=== PATIENT | female | born 1965 | race African-American/Black ===

== ENCOUNTER 2017-01-15 07:43 | Observation (INO) | payer OTHER ==
[~2017-01-15] VITALS: Ht 180.3 cm; Wt 77.5 kg
[2017-01-15] VITALS (9 sets, daily range): BP systolic 120–152; BP diastolic 74–92; PULSE 56–82; RESP 16–18; TEMP 96.2–98.2; O2SAT 97–99
[~2017-01-15 07:43] MED LIST: CYCL5TAB PO; MEDR4PAK3 PO; NAPR40TA PO
[2017-01-15] MEDS ORDERED: CYCL5TAB PO (08:06)
--- NOTE | 2017-01-15 08:11 | PD ---
HPI Chief Complaint: GI Complaint Time Seen by Provider: 08:08 Travel History International Travel<30 days: No Contact w/Intl Traveler<30days: No Traveled to known affect area: No History of Present Illness HPI 51-year-old female with history of borderline diabetes, presents to the ER today because she states that she is having 1 week history of substernal chest pains and epigastric sharp abdominal pains with intermittent twinges of pain, currently states that she has a 4 out 10 pain without known exacerbating or alleviating factors. She states she has mild shortness of breath but no coughing, fevers, vomiting, or any other symptoms. Modifying Factors: None Associated Signs & Symptoms: Epigastric abdominal pain and chest pain Risk Factors: None PFSH Past Medical History Arthritis: Yes Autoimmune Disease: No Anxiety: Yes Depression: No Heart Rhythm Problems: Yes (IRREGULAR HEART RATE) Cancer: Yes (ADRENAL TUMOR) Cardiovascular Problems: Yes High Cholesterol: No Chemotherapy: No Chest Pain: No Congestive Heart Failure: No Diabetes: No Diminished Hearing: No Endocrine: No Gastrointestinal Disorders: No Genitourinary: No Hypertension: No Immune Disorder: No Implanted Vascular Access Dvce: No Musculoskeletal: Yes Neurologic: No Psychiatric: No Reproductive: No Respiratory: No Radiation Therapy: No Thyroid Disease: No Ulcer: Yes Influenza Vaccination: Yes ?: Not Menopausal: Yes : 0 Past Surgical History Abdominal Surgery: No AICD: No Arteriovenous Shunt: No Cardiac Surgery: No Cholecystectomy: Yes Ear Surgery: No Endocrine Surgery: No Eye Surgery: No Genitourinary Surgery: No Gynecologic Surgery: Yes (HYSTERECTOMY) Hysterectomy: Yes Insulin Pump: No Joint Replacement: No Neurologic Surgery: No Oral Surgery: No Pacemaker: No Thoracic Surgery: No Other Surgery: Yes (ADRENAL GLAND REMOVED) Social History Alcohol Use: Yes (FEW BEERS PER WEEK) Tobacco Use: Yes (2-3 CIGS A DAY) Substance Use: No Allergies-Medications (Allergen,Severity, Reaction): Coded Allergies: Oxycodone (Verified Allergy, Unknown, "FLIPS OUT", 01/15/17) Penicillin (Verified Allergy, Unknown, CHILDHOOD PER PT, 01/15/17) Reported Meds & Prescriptions Reported Meds & Active Scripts Active Reported Flexeril (Cyclobenzaprine HCl) 5 Mg Tab Unknown Dose PO ONCE Review of Systems Except as stated in HPI: all other systems reviewed are Neg Physical Exam Narrative GENERAL: Well-developed -Greek female patient currently in mild distress. Awake and oriented 3. SKIN: Focused skin assessment warm/dry. HEAD: Atraumatic. Normocephalic. EYES: Pupils equal and round. No scleral icterus. No injection or drainage. ENT: No nasal bleeding or discharge. Mucous membranes pink and moist. NECK: Trachea midline. No JVD. CARDIOVASCULAR: Regular rate and rhythm. No murmur appreciated. RESPIRATORY: No accessory muscle use. Clear to auscultation. Breath sounds equal bilaterally. GASTROINTESTINAL: Abdomen soft, moderate epigastric tenderness without guarding or rebound, nondistended. Hepatic and splenic margins not palpable. MUSCULOSKELETAL: No obvious deformities. No clubbing. No cyanosis. No edema. NEUROLOGICAL: Awake and alert. No obvious cranial nerve deficits. Motor grossly within normal limits. Normal speech. PSYCHIATRIC: Appropriate mood and affect; insight and judgment normal. Data Data Last Documented VS Vital Signs Date Time Temp Pulse Resp B/P Pulse Ox O2 Delivery O2 Flow Rate FiO2 01/15/17 09:52 70 18 128/89 98 01/15/17 08:19 Room Air 01/15/17 07:49 98.2 Orders Electrocardiogram (01/15/17 08:08) Ckmb (Isoenzyme) Profile (01/15/17 08:08) Complete Blood Count With Diff (01/15/17 08:08) Comprehensive Metabolic Panel (01/15/17 08:08) Magnesium (Mg) (01/15/17 08:08) Prothrombin Time / Inr (Pt) (01/15/17 08:08) Act Partial Throm Time (Ptt) (01/15/17 08:08) Troponin I (01/15/17 08:08) Lipase (01/15/17 08:08) Chest, Single Ap (01/15/17 08:08) Ecg Monitoring (01/15/17 08:08) Bilateral Bp Monitoring (01/15/17 08:08) Iv Access Insert/Monitor (01/15/17 08:08) Oximetry (01/15/17 08:08) Oxygen Administration (01/15/17 08:08) Sodium Chloride 0.9% Flush (Ns Flush) (01/15/17 08:15) Aspirin (Aspirin) (01/15/17 09:45) Al-Mag Hy-Si 40-40-4 Mg/Ml Liq (Mag-Al P (01/15/17 09:45) Lidocaine 2% Viscous (Xylocaine 2% Visco (01/15/17 09:45) Ct Abd/Pel W Iv Contrast(Rout) (01/15/17 09:44) Iohexol 350 Inj (Omnipaque 350 Inj) (01/15/17 10:21) Labs Laboratory Tests Test 01/15/17 08:10 White Blood Count 9.7 TH/MM3 Red Blood Count 5.35 MIL/MM3 Hemoglobin 15.0 GM/DL Hematocrit 47.5 % Mean Corpuscular Volume 88.8 FL Mean Corpuscular Hemoglobin 28.0 PG Mean Corpuscular Hemoglobin 31.6 % Concent Red Cell Distribution Width 13.3 % Platelet Count 320 TH/MM3 Mean Platelet Volume 7.9 FL Neutrophils (%) (Auto) 60.4 % Lymphocytes (%) (Auto) 34.1 % Monocytes (%) (Auto) 4.3 % Eosinophils (%) (Auto) 0.8 % Basophils (%) (Auto) 0.4 % Neutrophils # (Auto) 5.9 TH/MM3 Lymphocytes # (Auto) 3.3 TH/MM3 Monocytes # (Auto) 0.4 TH/MM3 Eosinophils # (Auto) 0.1 TH/MM3 Basophils # (Auto) 0.0 TH/MM3 CBC Comment DIFF FINAL Differential Comment Prothrombin Time 10.5 SEC Prothromb Time International 1.0 RATIO Ratio Activated Partial 28.2 SEC Thromboplast Time Sodium Level 138 MEQ/L Potassium Level 3.8 MEQ/L Chloride Level 105 MEQ/L Carbon Dioxide Level 24.9 MEQ/L Anion Gap 8 MEQ/L Blood Urea Nitrogen 5 MG/DL Creatinine 0.71 MG/DL Estimat Glomerular Filtration 104 ML/MIN Rate Random Glucose 104 MG/DL Calcium Level 9.0 MG/DL Magnesium Level 2.3 MG/DL Total Bilirubin 0.5 MG/DL Aspartate Amino Transf 13 U/L (AST/SGOT) Alanine Aminotransferase 18 U/L (ALT/SGPT) Alkaline Phosphatase 118 U/L Total Creatine Kinase 72 U/L Troponin I LESS THAN 0.02 NG/ML Total Protein 7.8 GM/DL Albumin 3.5 GM/DL Lipase 132 U/L MDM Medical Decision Making Medical Screen Exam Complete: Yes Emergency Medical Condition: Yes Medical Record Reviewed: Yes Interpretation(s) EKG shows normal sinus rhythm at a rate of 70 bpm with no signs of acute ST-T changes. Laboratory Tests Test 01/15/17 08:10 Red Blood Count 5.35 MIL/MM3 (4.00-5.30) Hematocrit 47.5 % (35.0-46.0) Mean Corpuscular Hemoglobin 31.6 % Concent (32.0-36.0) Blood Urea Nitrogen 5 MG/DL (7-18) Aspartate Amino Transf 13 U/L (15-37) (AST/SGOT) Alkaline Phosphatase 118 U/L (45-117) Troponin I LESS THAN 0.02 NG/ML (0.02-0.05) Last 24 hours Impressions Chest X-Ray 01/15/17 0808 Signed Impressions: Service Date/Time: Sunday, January 15, 2017 08:47 - CONCLUSION: Normal examination. Jerry Kelly Jr., MD Differential Diagnosis Epigastric abdominal painsgastritis versus cholecystitis versus ACS versus dysrhythmias versus gastroenteritis Narrative Course Abdomen is fairly benign and I'm not suspecting an acute intra-abdominal problem. Lab work did not indicate any significant pancreatitis, dehydration, metabolic issues. EKG did not show dysrhythmias. She does not have acute ST-T changes. Patient does have some family history of early heart disease but otherwise has fevers factors herself. Considering her age and symptoms, my plan would be to admit her to chest pain center to rule out cardiac issues. CT of the abdomen and pelvis did not show any signs of acute processes. She is status post cholecystectomy and adrenalectomy. Diagnosis Primary Impression: Epigastric abdominal pain Additional Impression: Chest pain Admitting Information Admitting Physician Requests: Admit Amelia Haywood MD January 15, 2017 08:11
[2017-01-15] MEDS ORDERED: SODIUM CHLORIDE 0.9% FLUSH 10 ML FLUSH IVF PRN (08:15)
[2017-01-15 08:20] LABS: AUTOMATED NEUTROPHIL # 5.9 TH/MM3 (1.8-7.7); BASOPHIL % 0.4 % (0.0-2.0); EOSINOPHIL # 0.1 TH/MM3 (0-0.4); EOSINOPHIL % 0.8 % (0.0-4.0); HEMATOCRIT 47.5 % (35.0-46.0); LYMPH % 34.1 % (9.0-44.0); LYMPHOCYTE # 3.3 TH/MM3 (1.0-4.8); MEAN CELL VOLUME 88.8 FL (80.0-100.0); MEAN CORPUSCULAR HGB CONC 31.6 % (32.0-36.0); MONO % 4.3 % (0.0-8.0); NEUT % 60.4 % (16.0-70.0); PLATELET COUNT 320 TH/MM3 (150-450); RED BLOOD COUNT 5.35 MIL/MM3 (4.00-5.30); RED CELL DISTRIBUTION WIDTH 13.3 % (11.6-17.2); WHITE BLOOD COUNT 9.7 TH/MM3 (4.0-11.0)
[2017-01-15 08:21] LABS: HEMO FLAGS DIFF FINAL
[2017-01-15 08:30] LABS: CHLORIDE 105 MEQ/L (98-107); POTASSIUM 3.8 MEQ/L (3.5-5.1); SODIUM (NA) 138 MEQ/L (136-145)
[2017-01-15 08:33] LABS: APTT (PATIENT) 28.2 SEC (24.3-30.1); PROTHROMBIN TIME - PATIENT 10.5 SEC (9.8-11.6)
[2017-01-15 08:34] LABS: ANION GAP 8 MEQ/L (5-15); BICARBONATE 24.9 MEQ/L (21.0-32.0); BLOOD UREA NITROGEN 5 MG/DL (7-18); MAGNESIUM 2.3 MG/DL (1.5-2.5)
[2017-01-15 08:37] LABS: ALT (GPT) 18 U/L (10-53); AST (GOT) 13 U/L (15-37); GLOMERULAR FILTRATION RATE 104 ML/MIN (>89)
[2017-01-15 08:39] LABS: TOTAL BILIRUBIN ADULT 0.5 MG/DL (0.2-1.0)
[2017-01-15 08:40] LABS: ALKALINE PHOSPHATASE 118 U/L (45-117)
[2017-01-15 08:43] LABS: CREATINE KINASE 72 U/L (26-192)
--- NOTE | 2017-01-15 09:28 | RADHPO ---
EXAM DATE/TIME: 01/15/2017 08:47 [facility] COMPARISON: CHEST SINGLE AP, January 14, 2015, 21:47. INDICATIONS : Chest pain. MEDICAL HISTORY : None. SURGICAL HISTORY : None. ENCOUNTER: Initial ACUITY: 1 week PAIN SCORE: 3/10 LOCATION: Bilateral chest FINDINGS: A single view of the chest demonstrates the lungs to be symmetrically aerated without evidence of mas s, infiltrate or effusion. The cardiomediastinal contours are unremarkable. Osseous structures are intact. CONCLUSION: Normal examination. Jerry Kelly Jr., MD on January 15, 2017 at 9:26 Board Certified Radiologist. This report was verified electronically.
[2017-01-15] MEDS ORDERED: ALUMINUM/MAGNESIUM/SIMETH 30 ML CUP PO ONE (09:45)
[2017-01-15] MEDS ORDERED: LIDOCAINE VISCOUS 2% SOLN 15 ML UDC PO ONE (09:45)
[2017-01-15] MEDS ORDERED: ASPIRIN 325 MG TAB PO ONE (09:45)
[2017-01-15] MEDS ORDERED: IOHEXOL 350 MG/ML 10 ML VIAL (for RAD DIAG) IV ONE (10:21)
--- NOTE | 2017-01-15 10:43 | RADHPO ---
EXAM DATE/TIME: 01/15/2017 10:06 [facility] COMPARISON: CT ABDOMEN & PELVIS W CONTRAST, January 15, 2015, 0:05. INDICATIONS : Epigastric and substernal pain. IV CONTRAST: 95 cc Omnipaque 350 (iohexol) IV ORAL CONTRAST: No oral contrast ingested. RADIATION DOSE: 11.38 CTDIvol (mGy) MEDICAL HISTORY : Adrenal tumor. SURGICAL HISTORY : Cholecystectomy. Hysterectomy.Adrenal gland removed. ENCOUNTER: Initial ACUITY: 1 week PAIN SCALE: 4/10 LOCATION: upper quadrant TECHNIQUE: Volumetric scanning of the abdomen and pelvis was performed. Using automated exposure control and ad justment of the mA and/or kV according to patient size, radiation dose was kept as low as reasonably achievable to obtain optimal diagnostic quality images. FINDINGS: Examination of the lung bases demonstrates no abnormality. No pleural fluid is identified. No pulmona ry nodules are present. The liver and spleen are normal in size and no focal defects are identified. The gallbladder is surgically absent. The pancreas demonstrates a prominent pancreatic head with cont inued dilatation of the common bile duct to 10 mm unchanged from 2014. The right adrenal gland is unr emarkable. The left adrenal gland is surgically absent. The kidneys are normal bilaterally without ev idence of mass or hydronephrosis. Examination of the pelvis demonstrates no evidence of free fluid or pelvic mass. No abnormally enlarg ed inguinal or retroperitoneal lymph nodes are present. The bladder is unremarkable. CONCLUSION: 1. No evidence of acute abdominal or pelvic process. No masses are identified. 2. Cholecystectomy and left adrenalectomy 3. Prominent pancreatic head with continued dilatation the common duct. This may reflect reservoir af fect though MRCP is recommended for further evaluation if clinically indicated. Hugh Steven MD on January 15, 2017 at 10:35 Board Certified Radiologist. This report was verified electronically.
[2017-01-15] MEDS ORDERED: ASPIRIN 325 MG TAB PO SCH (11:30)
[2017-01-15] MEDS ORDERED: NITROGLYCERIN 0.4 MG SL 25 TABS/BTL SL PRN (11:30)
[2017-01-15] MEDS ORDERED: ENALAPRILAT 1.25 MG/ML VIAL IV PUSH PRN (11:45)
[2017-01-15] MEDS ORDERED: METOPROLOL TARTRATE 25 MG TAB PO SCH (12:00)
[2017-01-15] MEDS: MORPHINE SULFATE 4 MG/ML INJ IV PRN ×3 (13:04→21:39)
[2017-01-15 13:30] LABS: CREATINE KINASE 71 U/L (26-192)
--- NOTE | 2017-01-15 14:01 | HHI.HP ---
cc: ID Out Patient Clinic [facility] Admission Diagnosis chest pain Diagnoses: (1) Epigastric abdominal pain Diagnosis: Principal Chief Complaint: "chest pain" Travel History International Travel<30 Days: No Contact w/Intl Traveler <30 Da: No Traveled to Known Affected Are: No History of Present Illness 51-year-old -[place] female with history of hypertension due to an adrenal tumor which has since been removed, tobacco use, and GERD presents with complaint of chest pain pointing to the area over her lower sternum. She states the pain started 1.5 weeks ago and has been coming and going. She states the pain at most will be a 12/10 and feel like a knife stabbing her. She states it has eased up but is not gone. She denies any alleviating factors. She initially denies symptoms being related to food but then states every time she eats she gets a sensation of food getting stuck in her esophagus. She also states she likes spicy food. She denies any radiation of pain elsewhere. States she's had some sweating but is unsure if it is hot flashes versus true diaphoresis. Admits to decreased energy. Admits to shortness of breath only if the pain is bad because then she holds her breath. She denies any fevers or chills, abdominal pain, nausea or vomiting, or dysuria. Denies blood in the stool. Patient states she had an endoscopy and colonoscopy about 3 years ago. She does not take an medication for her stomach. Had a nuclear stress test 3-4 years ago which was normal and a treadmill stress test approximately 5 years ago. Review of Systems Except as stated in HPI: all other systems reviewed are Neg Past Family Social History Past Medical History Left adrenal tumor, benign. Hypertension related to adrenal tumor Past Surgical History Cholecystectomy Hysterectomy Left adrenal gland removal Reported Medications Flexeril (Cyclobenzaprine HCl) 5 Mg Tab Unknown Dose PO ONCE Allergies: Coded Allergies: Oxycodone (Verified Allergy, Unknown, "FLIPS OUT", 01/16/17) Penicillin (Verified Allergy, Unknown, CHILDHOOD PER PT, 01/16/17) Family History Mother: Diabetes, pacemaker. Father: CVA in his 60s. Maternal grandmother: [place] in her late 50s to early 60s, CABG 4. Maternal grandfather: CVA at age 65. Social History Kathryn. Patient drinks alcohol once monthly. Smokes approximately 2-3 cigarettes per week. She has been smoking for the past 20 years. Admits to marijuana use. Physical Exam Vital Signs Vital Signs Date Time Temp Pulse Resp B/P Pulse Ox O2 Delivery O2 Flow Rate FiO2 01/15/17 13:14 18 01/15/17 11:30 96.5 68 16 130/91 97 01/15/17 11:21 70 18 152/88 99 01/15/17 09:52 70 18 128/89 98 01/15/17 08:19 82 18 133/91 98 Room Air 01/15/17 08:16 82 18 133/91 98 Room Air 01/15/17 08:16 98 Room Air 01/15/17 07:49 98.2 82 135/92 97 Physical Exam GENERAL: This is a well-nourished, well-developed patient, in no apparent distress. SKIN: No rashes, ecchymoses or lesions. Warm and dry. HEAD: Atraumatic. Normocephalic. EYES: No injection or drainage. NECK: Trachea midline. CHEST: No reproducible tenderness over the sternum. CARDIOVASCULAR: Regular rate and rhythm without murmurs, gallops, or rubs. RESPIRATORY: Clear to auscultation. Breath sounds equal bilaterally. No wheezes , rales, or rhonchi. GASTROINTESTINAL: Normoactive bowel sounds. Abdomen soft, nondistended. Tender over epigastric region. No guarding. NEUROLOGICAL: Awake and alert. Motor grossly within normal limits. Normal speech. PSYCHIATRIC: Normal mood and affect. Laboratory Laboratory Tests Test 01/15/17 01/15/17 01/15/17 08:10 11:05 12:15 White Blood Count 9.7 Red Blood Count 5.35 Hemoglobin 15.0 Hematocrit 47.5 Mean Corpuscular Volume 88.8 Mean Corpuscular Hemoglobin 28.0 Mean Corpuscular Hemoglobin 31.6 Concent Red Cell Distribution Width 13.3 Platelet Count 320 Mean Platelet Volume 7.9 Neutrophils (%) (Auto) 60.4 Lymphocytes (%) (Auto) 34.1 Monocytes (%) (Auto) 4.3 Eosinophils (%) (Auto) 0.8 Basophils (%) (Auto) 0.4 Neutrophils # (Auto) 5.9 Lymphocytes # (Auto) 3.3 Monocytes # (Auto) 0.4 Eosinophils # (Auto) 0.1 Basophils # (Auto) 0.0 CBC Comment DIFF FINAL Differential Comment Prothrombin Time 10.5 Prothromb Time International 1.0 Ratio Activated Partial 28.2 Thromboplast Time Sodium Level 138 Potassium Level 3.8 Chloride Level 105 Carbon Dioxide Level 24.9 Anion Gap 8 Blood Urea Nitrogen 5 Creatinine 0.71 Estimat Glomerular Filtration 104 Rate Random Glucose 104 Calcium Level 9.0 Magnesium Level 2.3 Total Bilirubin 0.5 Aspartate Amino Transf 13 (AST/SGOT) Alanine Aminotransferase 18 (ALT/SGPT) Alkaline Phosphatase 118 Total Creatine Kinase 72 71 Troponin I LESS THAN 0.02 LESS THAN 0.02 LESS THAN 0.02 Total Protein 7.8 Albumin 3.5 Lipase 132 Beta HCG, Qualitative LESS THAN 1 Result Diagram: 01/15/17 0810 01/15/17 0810 Imaging Last Impressions Abdomen/Pelvis CT 01/15/17 0944 Signed Impressions: Service Date/Time: Sunday, January 15, 2017 10:06 - CONCLUSION: 1. No evidence of acute abdominal or pelvic process. No masses are identified. 2. Cholecystectomy and left adrenalectomy 3. Prominent pancreatic head with continued dilatation the common duct. This may reflect reservoir affect though MRCP is recommended for further evaluation if clinically indicated. Hugh Steven MD Chest X-Ray 01/15/17 0808 Signed Impressions: Service Date/Time: Sunday, January 15, 2017 08:47 - CONCLUSION: Normal examination. Jerry Kelly Jr., MD Assessment and Plan Assessment and Plan 51-year-old female with: moderatly severe Epigastric pain: pt was given morphine iv to alleviate the pain.Patient describes chest pain over the sternum but is clearly tender over the epigastric region and has food related symptom with risk factors for GERD. Lipase is normal. LFTs are normal. CT of the abdomen and pelvis shows no acute abdominal or pelvic process. It does show prominent pancreatic head with continued dilatation of the common duct. Radiologist indicates it may reflect reservoir affect though MRCP is recommended. May be chronic as dilation of the common bile duct was seen on gallbladder ultrasound in December 2014. Was given Maalox and viscous Lidocaine in the ED. -EKGs and cardiac enzymes ordered to rule out ACS. EKGs reviewed with left axis deviation but no acute ischemic changes. Troponin 4 less than 0.02. SUZY score zero. Patient does not need a stress test as her symptoms are believed to be GI related. -Start Protonix 40 mg by mouth daily -TUMS and Maalox as needed for dyspepsia. -GI consultation regarding CT findings above. HTN: Patient states she used to have high blood pressure due to her adrenal gland tumor which has since been removed, but her BP was elevated today, highest 152/88, could be attributed to pain. -Patient was given one dose of metoprolol this afternoon but will discontinue as symptoms are not felt to be cardiac related. -Vasotec as needed DVT prevention: SCDs. Written by Nikki Rhoades PA-C acting as scribe for Dr. Pang on 01/15/17 at ~ 1400. Nikki Rhoades January 15, 2017 14:01 Og Pang MD January 16, 2017 11:13
[2017-01-15] MEDS ORDERED: CALCIUM CARBONATE 500 MG CHEWABLE TAB CHEW PRN (14:30)
[2017-01-15] MEDS ORDERED: ALUMINUM/MAGNESIUM/SIMETH 30 ML CUP PO PRN (14:30)
[2017-01-15 15:03] LABS: CREATINE KINASE 66 U/L (26-192)
[2017-01-15] MEDS ORDERED: PANTOPRAZOLE SOD 40 MG DELAYED RELEASE TAB PO SCH (21:00)
--- NOTE | 2017-01-15 21:03 | PD.CONS ---
HPI History of Present Illness This is a 51 year old female who presents with complaints of epigastric pain for the past week and a half gradually worsening over time waxing and waning but continuous overall dull aching sensation with sharp stabbing episodes no radiation no nausea or vomiting no diarrhea or constipation no fever or chills no hematemesis coffee-ground emesis no melena or hematochezia she has tried over -the-counter antacids of different sorts and none have been helpful she has had an upper endoscopy and a colonoscopy a few years ago and for the most part it was unremarkable she is currently comfortable in bed still with continued upper abdominal tenderness but otherwise doing well [facility] Past Medical History Left adrenal tumor, benign. Hypertension related to adrenal tumor Past Surgical History Cholecystectomy Hysterectomy Left adrenal gland removal Coded Allergies: Oxycodone (Verified Allergy, Unknown, "FLIPS OUT", 01/15/17) Penicillin (Verified Allergy, Unknown, CHILDHOOD PER PT, 01/15/17) Medications Flexeril (Cyclobenzaprine HCl) 5 Mg Tab Unknown Dose PO ONCE Family History Mother: Diabetes, pacemaker. Father: CVA in his 60s. Maternal grandmother: [place] in her late 50s to early 60s, CABG 4. Maternal grandfather: CVA at age 65. Social History . Patient drinks alcohol once monthly. Smokes approximately 2-3 cigarettes per week. She has been smoking for the past 20 years. Admits to marijuana use. Review of Systems ROS Review of systems Patient denies any headache dizziness blurry vision, denies any chest pain shortness of breath cough fever chills, Denies any palpitations or fatigue denies any polyuria dysuria hematuria, denies any numbness tingling or weakness, denies any skin rash pruritus or jaundice, denies any easy bruising or bleeding tendency, denies any recent change in mood GI Exam Vitals I&O Vital Signs Date Time Temp Pulse Resp B/P Pulse Ox O2 Delivery O2 Flow Rate FiO2 01/15/17 20:00 97.6 63 18 121/74 99 01/15/17 17:46 15 01/15/17 16:00 96.2 56 16 120/85 97 01/15/17 11:30 96.5 68 16 130/91 97 01/15/17 11:21 70 18 152/88 99 01/15/17 09:52 70 18 128/89 98 01/15/17 08:19 82 18 133/91 98 Room Air 01/15/17 08:16 82 18 133/91 98 Room Air 01/15/17 08:16 98 Room Air 01/15/17 07:49 98.2 82 135/92 97 Imaging Last Impressions Abdomen/Pelvis CT 01/15/17 0944 Signed Impressions: Service Date/Time: Sunday, January 15, 2017 10:06 - CONCLUSION: 1. No evidence of acute abdominal or pelvic process. No masses are identified. 2. Cholecystectomy and left adrenalectomy 3. Prominent pancreatic head with continued dilatation the common duct. This may reflect reservoir affect though MRCP is recommended for further evaluation if clinically indicated. Hugh Steven MD Chest X-Ray 01/15/17 0808 Signed Impressions: Service Date/Time: Sunday, January 15, 2017 08:47 - CONCLUSION: Normal examination. Jerry Kelly Jr., MD Laboratory Test 01/15/17 01/15/17 01/15/17 01/15/17 08:10 11:05 12:15 14:21 White Blood Count 9.7 TH/MM3 Red Blood Count 5.35 MIL/MM3 Hemoglobin 15.0 GM/DL Hematocrit 47.5 % Mean Corpuscular Volume 88.8 FL Mean Corpuscular Hemoglobin 28.0 PG Mean Corpuscular Hemoglobin 31.6 % Concent Red Cell Distribution Width 13.3 % Platelet Count 320 TH/MM3 Mean Platelet Volume 7.9 FL Neutrophils (%) (Auto) 60.4 % Lymphocytes (%) (Auto) 34.1 % Monocytes (%) (Auto) 4.3 % Eosinophils (%) (Auto) 0.8 % Basophils (%) (Auto) 0.4 % Neutrophils # (Auto) 5.9 TH/MM3 Lymphocytes # (Auto) 3.3 TH/MM3 Monocytes # (Auto) 0.4 TH/MM3 Eosinophils # (Auto) 0.1 TH/MM3 Basophils # (Auto) 0.0 TH/MM3 CBC Comment DIFF FINAL Differential Comment Prothrombin Time 10.5 SEC Prothromb Time International 1.0 RATIO Ratio Activated Partial 28.2 SEC Thromboplast Time Sodium Level 138 MEQ/L Potassium Level 3.8 MEQ/L Chloride Level 105 MEQ/L Carbon Dioxide Level 24.9 MEQ/L Anion Gap 8 MEQ/L Blood Urea Nitrogen 5 MG/DL Creatinine 0.71 MG/DL Estimat Glomerular Filtration 104 ML/MIN Rate Random Glucose 104 MG/DL Calcium Level 9.0 MG/DL Magnesium Level 2.3 MG/DL Total Bilirubin 0.5 MG/DL Aspartate Amino Transf 13 U/L (AST/SGOT) Alanine Aminotransferase 18 U/L (ALT/SGPT) Alkaline Phosphatase 118 U/L Total Creatine Kinase 72 U/L 71 U/L 66 U/L Troponin I LESS THAN 0.02 LESS THAN 0.02 LESS THAN 0.02 LESS THAN 0.02 NG/ML NG/ML NG/ML NG/ML Total Protein 7.8 GM/DL Albumin 3.5 GM/DL Lipase 132 U/L Beta HCG, Qualitative LESS THAN 1 MIU/ML Physical Examination HEENT: Pupils round and reactive to light; normocephalic; atraumatic; no jaundice. Throat is clear. NECK: Neck is supple, no JVD, no lymphadenopathy. CHEST: Chest is clear to auscultation and percussion. CARDIAC: Regular rate and rhythm with no murmur gallop or rubs. ABDOMEN: Soft, nondistended, epigastric tenderness no rebound or guarding; no hepatosplenomegaly; bowel sounds are present in all four quadrants. EXTREMITIES: No clubbing, cyanosis, or edema. SKIN: Normal; no rash; no jaundice. CAST SHELL GRINDER: No focal deficits; alert and oriented times three. Assessment and Plan Plan Epigastric tenderness etiology unclear Abnormal CT showing haziness of the pancreatic head and dilated common bile duct with known history of cholecystectomy possible reservoir effect Agree with current supportive care Monitor labs MRCP ordered EGD ordered Tumor markers ordered May consider endoscopic ultrasound to further evaluate the pancreatic head Await results from above Nicolas Velez MD January 15, 2017 21:03
[2017-01-16] VITALS: BP 107/76; PULSE 58; RESP 18; TEMP 97; O2SAT 95
[2017-01-16] MEDS: MORPHINE SULFATE 4 MG/ML INJ IV PRN ×5 (01:20→14:41)
[2017-01-16] MEDS ORDERED: LACTATED RINGER'S 1000 ML IV PRN (02:45)
[2017-01-16 04:00] VITALS: BP 112/75; PULSE 55; RESP 18; TEMP 96.5; O2SAT 95
[2017-01-16 06:49] LABS: HEMATOCRIT 45.5 % (35.0-46.0); MEAN CORPUSCULAR HEMOGLOBIN 28.7 PG (27.0-34.0); MEAN CORPUSCULAR HGB CONC 32.6 % (32.0-36.0); PLATELET COUNT 304 TH/MM3 (150-450); RED BLOOD COUNT 5.17 MIL/MM3 (4.00-5.30); RED CELL DISTRIBUTION WIDTH 12.3 % (11.6-17.2); REVIEW FLAG FINAL; WHITE BLOOD COUNT 7.2 TH/MM3 (4.0-11.0)
[2017-01-16 06:50] VITALS: BP 112/75; PULSE 55; RESP 18; TEMP 96.5; O2SAT 95
[2017-01-16 06:54] LABS: CHLORIDE 104 MEQ/L (98-107); POTASSIUM 3.8 MEQ/L (3.5-5.1); SODIUM (NA) 140 MEQ/L (136-145)
[2017-01-16 06:58] LABS: ANION GAP 7 MEQ/L (5-15); BLOOD UREA NITROGEN 9 MG/DL (7-18)
[2017-01-16 07:00] LABS: ALT (GPT) 21 U/L (10-53)
[2017-01-16 07:01] LABS: AST (GOT) 21 U/L (15-37); GLOMERULAR FILTRATION RATE 84 ML/MIN (>89)
[2017-01-16 07:02] LABS: TOTAL BILIRUBIN ADULT 0.5 MG/DL (0.2-1.0)
[2017-01-16 07:04] LABS: ALKALINE PHOSPHATASE 119 U/L (45-117)
--- NOTE | 2017-01-16 07:51 | PD.PROCEDR ---
GI Procedure REFERRING PHYSICIAN Dr. Damon PROCEDURE PERFORMED EGD with biopsy INDICATION FOR PROCEDURE Epigastric pain PROCEDURE: The procedure, risks and benefits were discussed with Ms. Londono and informed consent was obtained. Anesthesia sedated her with Diprivan. She was placed in the left lateral decubitus position. EGD: The Pentax videoscope was introduced through the oropharynx and advanced to the second portion of the duodenum under direct visualization. Retroflexion was performed in the stomach. FINDINGS: The esophagus this was normal Stomach there was patchy erythema in the antrum but no ulcerations or erosions the rest of the gastric mucosa was unremarkable antral biopsies were taken for further evaluation Duodenum this was normal ESTIMATED BLOOD LOSS: None SPECIMENS REMOVED: Antral biopsy COMPLICATIONS: None IMPRESSION: Antral gastritis Otherwise unremarkable EGD PLAN: Await biopsy Await MRCP Considering EUS this can be done as an outpatient Continue present supportive care Nicolas Velez MD January 16, 2017 07:51
[2017-01-16] MEDS ORDERED: PROPOFOL 200 MG/20 ML AMP IV ONE (08:11)
[2017-01-16] MEDS ORDERED: PANTOPRAZOLE SOD 40 MG DELAYED RELEASE TAB PO SCH (09:00)
[2017-01-16 09:28] LABS: HDL CHOLESTEROL 42.4 MG/DL (40.0-60.0); LDL CHOLESTEROL 186 MG/DL (0-99)
[2017-01-16 09:30] VITALS: BP 112/68; RESP 16
--- NOTE | 2017-01-16 11:03 | EKG ---
Date Performed: 01/15/2017 Time Performed: 14:29:14 PTAGE: 51 years EKG: Sinus bradycardia Leftward axis rSr'(V1) - probable normal variant Possible anterior infarc t - age undetermined Inferior T wave changes are nonspecific Abnormal ECG PREVIOUS TRACING : 01/15/2017 11.04 DOCTOR: Pritesh Bernal Interpretating Date/Time 01/16/2017 11:00:27
--- NOTE | 2017-01-16 11:16 | EKG ---
Date Performed: 01/15/2017 Time Performed: 11:04:00 PTAGE: 51 years EKG: Sinus rhythm Left axis deviation Anteroseptal infarct - age undetermined Abnormal ECG PREVIOUS TRACING : 01/15/2017 08.21 DOCTOR: Pritesh Bernal Interpretating Date/Time 01/16/2017 11:15:20
[2017-01-16 11:19] LABS: HEMOGLOBIN A1b 1.9 %; HEMOGLOBIN Ao 84.3 %; HEMOGLOBIN LA1C 1.9 %; HEMOGLOBIN P3 3.7 %
--- NOTE | 2017-01-16 11:19 | EKG ---
Date Performed: 01/15/2017 Time Performed: 08:21:44 PTAGE: 51 years EKG: Sinus rhythm Left axis deviation Possible anteroseptal infarct - age undetermined Low QRS voltages in precordial leads Abnormal ECG PREVIOUS TRACING : 05/01/2015 15.27 DOCTOR: Pritesh Bernal Interpretating Date/Time 01/16/2017 11:17:33
--- NOTE | 2017-01-16 11:49 | RADHPO ---
EXAM DATE/TIME: 01/16/2017 10:27 [facility] COMPARISON: CT ABDOMEN & PELVIS W CONTRAST, January 15, 2017, 10:06. INDICATIONS : Obstruction. MEDICAL HISTORY : None. SURGICAL HISTORY : Cholecystectomy. Hysterectomy. Adrenal gland removed. ENCOUNTER: Initial ACUITY: 2 day PAIN SCORE: 3/10 LOCATION: abdomen TECHNIQUE: Multiplanar, multisequence magnetic resonance imaging of the abdomen was performed. High-resolution 3D dataset was utilized to reconstruct maximum-intensity projection (MIP) images. FINDINGS: There is hypodensity within the liver compatible with cyst measuring 8 mm in segment 7. The spleen is normal in size and free of focal defects. The adrenal glands and kidneys appear normal bilaterally. No hydronephrosis or mass lesions are identified. No pancreatic head mass is identified. The gallblad michelle is surgically absent. The intrahepatic ducts and common bile duct are prominent which may reflect reservoir effect. No abnormally enlarged lymph nodes are identified. The common duct is dilated to 8 mm but no stones are identified. No stricture is seen CONCLUSION: 1. No evidence of acute abdominal process. No masses are identified. 2. No pancreatic mass identified Hugh Steven MD on January 16, 2017 at 11:44 Board Certified Radiologist. This report was verified electronically.
[2017-01-16 13:02] VITALS: BP 131/92; PULSE 67; RESP 18; TEMP 96.2; O2SAT 98
[2017-01-16] MEDS ORDERED: SUCRALFATE 1 GM/10 ML CUP PO ONE (13:45)
[2017-01-16] MEDS ORDERED: PANT40TA3 PO (13:53)
[2017-01-16] MEDS ORDERED: SUCR1S PO (13:53)
--- NOTE | 2017-01-16 14:41 | HHI.DS ---
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 She states the pain started 1.5 weeks ago and has been coming and going. She states the pain at most will be a 12/10 and feel like a knife stabbing her. She states it has eased up but is not gone. She denies any alleviating factors. She initially denies symptoms being related to food but then states every time she eats she gets a sensation of food getting stuck in her esophagus. She also states she likes spicy food. She denies any radiation of pain elsewhere. States she's had some sweating but is unsure if it is hot flashes versus true diaphoresis. Admits to decreased energy. Admits to shortness of breath only if the pain is bad because then she holds her breath. She denies any fevers or chills, abdominal pain, nausea or vomiting, or dysuria. Denies blood in the stool. Patient states she had an endoscopy and colonoscopy about 3 years ago. She does not take an medication for her stomach. Had a nuclear stress test 3-4 years ago which was normal and a treadmill stress test approximately 5 years ago. CBC/BMP: 01/16/17 0605 01/16/17 0605 Significant Findings Laboratory Tests Test 01/15/17 01/15/17 01/15/17 01/15/17 08:10 11:05 12:15 14:21 Red Blood Count 5.35 MIL/MM3 (4.00-5.30) Hematocrit 47.5 % (35.0-46.0) Mean Corpuscular Hemoglobin 31.6 % Concent (32.0-36.0) Blood Urea Nitrogen 5 MG/DL (7-18) Aspartate Amino Transf 13 U/L (15-37) (AST/SGOT) Alkaline Phosphatase 118 U/L (45-117) Troponin I LESS THAN 0.02 LESS THAN 0.02 LESS THAN 0.02 LESS THAN 0.02 NG/ML NG/ML NG/ML NG/ML (0.02-0.05) (0.02-0.05) (0.02-0.05) (0.02-0.05) Test 01/16/17 06:05 Estimat Glomerular Filtration 84 ML/MIN (>89) Rate Hemoglobin A1c 6.4 % (4.3-6.0) Alkaline Phosphatase 119 U/L (45-117) Albumin 3.2 GM/DL (3.4-5.0) Triglycerides Level 163 MG/DL (42-150) Cholesterol Level 261 MG/DL (120-200) LDL Cholesterol 186 MG/DL (0-99) Imaging Last Impressions Cholangiopancreatography MRI 01/16/17 0000 Signed Impressions: Service Date/Time: Monday, January 16, 2017 10:27 - CONCLUSION: 1. No evidence of acute abdominal process. No masses are identified. 2. No pancreatic mass identified Hugh Steven MD Abdomen/Pelvis CT 01/15/17 0944 Signed Impressions: Service Date/Time: Sunday, January 15, 2017 10:06 - CONCLUSION: 1. No evidence of acute abdominal or pelvic process. No masses are identified. 2. Cholecystectomy and left adrenalectomy 3. Prominent pancreatic head with continued dilatation the common duct. This may reflect reservoir affect though MRCP is recommended for further evaluation if clinically indicated. Hugh Steven MD Chest X-Ray 01/15/17 0808 Signed Impressions: Service Date/Time: Sunday, January 15, 2017 08:47 - CONCLUSION: Normal examination. Jerry Kelly Jr., MD Hospital Course Mrs. Londono is a 51 year old female. She came in with lower chest and epigastric pain. The pain has been recurrent for 2-3 months. It worsens with eating. A cardiac work up did not show evidence of a cardiac etiology. She had an EGD and MRCP. The EGD shows gastritis without ulcer. MRCP shows no pathology. Carafate and PPI are selected as treatments. She is found to be medically stable for discharge to home today. Pt Condition on Discharge: Stable Discharge Disposition: Discharge Home Discharge Time: <= 30 minutes Discharge Instructions DIET: Follow Instructions for: As Tolerated, No Restrictions Activities you can perform: Regular-No Restrictions Follow up Referrals: Gastroenterology - 2 Weeks with Nicolas Velez MD PCP Follow-up - 2 Weeks New Medications: Pantoprazole (Pantoprazole) 40 Mg Tab 40 MG PO HS Gastritis #30 TAB Sucralfate Liq (Sucralfate Liq) 1 Gm/10 Ml Elvi 1 GM PO ACHS Gastritis #40 BOTTLE Discontinued Medications: Cyclobenzaprine (Flexeril) 5 Mg Tab Unknown Dose PO ONCE Muscle Spasm #90 Ref 0 TAB Jabari Torres MD January 16, 2017 2:41 pm
[2017-01-16 15:02] VITALS: RESP 16
[2017-01-16] MEDS ORDERED: SUCRALFATE 1 GM/10 ML CUP PO SCH (21:00)
== END 2017-01-16 17:29 | disposition home or self-care (01) ==
LOC: PHED 07:43 → PHEDA 10:50 → PH3A 11:19
PROVIDERS: ADMIT Hospitalist; ATTEND Hospitalist
DX: K29.50 Unspecified chronic gastritis without bleeding (principal); K21.9 Gastro-esophageal reflux disease without esophagitis; I10 Essential (primary) hypertension; M19.90 Unspecified osteoarthritis, unspecified site; F41.9 Anxiety disorder, unspecified; F17.210 Nicotine dependence, cigarettes, uncomplicated; Z88.5 Allergy status to narcotic agent; Z88.0 Allergy status to penicillin; Z85.89 Personal history of malignant neoplasm of other organs and systems
CPT/HCPCS: 43239; 71010; 74177; 74181; 76377; 80053; 80061; 82378; 82550; 83036; 83690; 83735; 84484; 84703; 85025; 85027; 85610; 85730; 86301; 88305; 88312; 93005; 99285; G0378; J2270; Q9967

== ENCOUNTER 2017-11-28 11:40 | Emergency (ER) | payer OTHER ==
[~2017-11-28] VITALS: Ht 180.3 cm; Wt 73.4 kg
[~2017-11-28 11:40] MED LIST changes: -CYCL5TAB PO; -MEDR4PAK3 PO; -NAPR40TA PO; +PANT40TA3 PO; +SUCR1S PO
[2017-11-28 11:45] VITALS: BP 133/74; PULSE 79; RESP 16; TEMP 98.1; O2SAT 99
[2017-11-28] MEDS ORDERED: SIMV40TA PO (11:57)
[2017-11-28] MEDS ORDERED: ASPI-516 CHEW (11:57)
--- NOTE | 2017-11-28 12:12 | PD ---
HPI Chief Complaint: Abdominal Pain Time Seen by Provider: 12:05 Travel History International Travel<30 days: No Contact w/Intl Traveler<30days: No Traveled to known affect area: No History of Present Illness HPI This 52-year-old female is complaining of abdominal pain. She says she is having mid abdominal pain for the last 3 days. She has noted a lump at the site for some time and feels like a lump is gotten bigger. It is more prominent when she stands up. She has had laparoscopic removal of an adrenal tumor in [place] and also cholecystectomy 7 years ago. sHe was told the adrenal tumor was benign [facility] Past Medical History Arthritis: Yes Autoimmune Disease: No Anxiety: Yes Depression: No Heart Rhythm Problems: Yes (IRREGULAR HEART RATE) Cancer: Yes (ADRENAL TUMOR) Cardiovascular Problems: Yes High Cholesterol: No Chemotherapy: No Chest Pain: Yes Congestive Heart Failure: No Diabetes: No Diminished Hearing: No Endocrine: No Gastrointestinal Disorders: No Genitourinary: No Hypertension: No Immune Disorder: No Implanted Vascular Access Dvce: No Musculoskeletal: Yes Neurologic: No Psychiatric: No Reproductive: No Respiratory: No Radiation Therapy: No Thyroid Disease: No Ulcer: Yes Influenza Vaccination: No ?: Not Menopausal: Yes : 0 Past Surgical History Abdominal Surgery: No AICD: No Arteriovenous Shunt: No Cardiac Surgery: No Cholecystectomy: Yes Ear Surgery: No Endocrine Surgery: No Eye Surgery: No Genitourinary Surgery: No Gynecologic Surgery: Yes (HYSTERECTOMY) Hysterectomy: Yes Insulin Pump: No Joint Replacement: No Neurologic Surgery: No Oral Surgery: No Pacemaker: No Thoracic Surgery: No Other Surgery: Yes (ADRENAL GLAND REMOVED) Social History Alcohol Use: Yes (FEW BEERS PER WEEK) Tobacco Use: Yes (5 per weel) Substance Use: No Allergies-Medications (Allergen,Severity, Reaction): Coded Allergies: iohexol (Verified Allergy, Intermediate, Nausea/Vomiting, 11/28/17) oxycodone (Unverified Allergy, Unknown, "FLIPS OUT", 11/28/17) penicillin G (Unverified Allergy, Unknown, CHILDHOOD PER PT, 11/28/17) Reported Meds & Prescriptions Reported Meds & Active Scripts Active Reported Aspirin 81 Mg Chew 81 Mg CHEW DAILY Simvastatin 40 Mg Tab 40 Mg PO HS Review of Systems General / Constitutional: No: Fever, Chills Eyes: No: Diploplia, Blurred Vision HENT: No: Vertigo Cardiovascular: No: Chest Pain or Discomfort, Palpitations Gastrointestinal: Positive: Abdominal Pain, No: Nausea Genitourinary: No: Urgency, Frequency Neurologic: No: Weakness, Dizziness Endocrine: No: Heat Intolerance, Cold Intolerance Hematologic/Lymphatic: No: Easy Bruising Physical Exam Narrative GENERAL: Well-developed female SKIN: Focused skin assessment warm/dry. HEAD: Atraumatic. Normocephalic. EYES: Pupils equal and round. No scleral icterus. No injection or drainage. ENT: No nasal bleeding or discharge. Mucous membranes pink and moist. NECK: Trachea midline. No JVD. CARDIOVASCULAR: Regular rate and rhythm. No murmur appreciated. RESPIRATORY: No accessory muscle use. Clear to auscultation. Breath sounds equal bilaterally. GASTROINTESTINAL: Abdomen soft, non-tender, nondistended. Hepatic and splenic margins not palpable. When the patient stands there is a hernia palpable just above the umbilicus MUSCULOSKELETAL: No obvious deformities. No clubbing. No cyanosis. No edema. NEUROLOGICAL: Awake and alert. No obvious cranial nerve deficits. Motor grossly within normal limits. Normal speech. PSYCHIATRIC: Appropriate mood and affect; insight and judgment normal. Data Data Last Documented VS Vital Signs Date Time Temp Pulse Resp B/P (MAP) Pulse Ox O2 Delivery O2 Flow Rate FiO2 11/28/17 13:22 80 18 129/84 (99) 97 Room Air 11/28/17 11:45 98.1 Orders Orders Complete Blood Count With Diff (11/28/17 12:10) Comprehensive Metabolic Panel (11/28/17 12:10) Lipase (11/28/17 12:10) Ct Abd/Pel W/O Iv Contrast (11/28/17 12:20) Labs Laboratory Tests Test 11/28/17 12:25 White Blood Count 6.6 TH/MM3 Red Blood Count 5.16 MIL/MM3 Hemoglobin 14.4 GM/DL Hematocrit 45.4 % Mean Corpuscular Volume 88.1 FL Mean Corpuscular Hemoglobin 27.9 PG Mean Corpuscular Hemoglobin Concent 31.7 % Red Cell Distribution Width 12.5 % Platelet Count 406 TH/MM3 Mean Platelet Volume 7.4 FL Neutrophils (%) (Auto) 44.8 % Lymphocytes (%) (Auto) 43.6 % Monocytes (%) (Auto) 8.6 % Eosinophils (%) (Auto) 2.2 % Basophils (%) (Auto) 0.8 % Neutrophils # (Auto) 2.9 TH/MM3 Lymphocytes # (Auto) 2.9 TH/MM3 Monocytes # (Auto) 0.6 TH/MM3 Eosinophils # (Auto) 0.1 TH/MM3 Basophils # (Auto) 0.1 TH/MM3 CBC Comment DIFF FINAL Differential Comment Blood Urea Nitrogen 12 MG/DL Creatinine 0.72 MG/DL Random Glucose 100 MG/DL Total Protein 7.7 GM/DL Albumin 3.3 GM/DL Calcium Level 9.4 MG/DL Alkaline Phosphatase 103 U/L Aspartate Amino Transf (AST/SGOT) 15 U/L Alanine Aminotransferase (ALT/SGPT) 18 U/L Total Bilirubin 0.2 MG/DL Sodium Level 137 MEQ/L Potassium Level 3.7 MEQ/L Chloride Level 106 MEQ/L Carbon Dioxide Level 24.8 MEQ/L Anion Gap 6 MEQ/L Estimat Glomerular Filtration Rate 102 ML/MIN Lipase 149 U/L MDM Medical Decision Making Medical Screen Exam Complete: Yes Emergency Medical Condition: Yes Medical Record Reviewed: Yes Differential Diagnosis Differential includes ventral hernia, Narrative Course CT scan was done and is read as negative. There is a palpable hernia when the patient stands. I will recommend that she follow-up with the [facility] regarding this hernia Diagnosis Primary Impression: Ventral hernia Additional Instructions: Follow-up at [facility] regarding hernia Disposition: 01 DISCHARGE HOME Condition: Stable Rogelio Joseph MD Nov 28, 2017 12:12
[2017-11-28 12:30] LABS: AUTOMATED NEUTROPHIL # 2.9 TH/MM3 (1.8-7.7); BASOPHIL # 0.1 TH/MM3 (0-0.2); BASOPHIL % 0.8 % (0.0-2.0); EOSINOPHIL # 0.1 TH/MM3 (0-0.4); EOSINOPHIL % 2.2 % (0.0-4.0); HEMATOCRIT 45.4 % (35.0-46.0); HEMOGLOBIN 14.4 GM/DL (11.6-15.3); LYMPH % 43.6 % (9.0-44.0); LYMPHOCYTE # 2.9 TH/MM3 (1.0-4.8); MEAN CELL VOLUME 88.1 FL (80.0-100.0); MEAN CORPUSCULAR HEMOGLOBIN 27.9 PG (27.0-34.0); MEAN CORPUSCULAR HGB CONC 31.7 % (32.0-36.0); MEAN PLATELET VOLUME 7.4 FL (7.0-11.0); MONO % 8.6 % (0.0-8.0); MONOCYTE # 0.6 TH/MM3 (0-0.9); NEUT % 44.8 % (16.0-70.0); PLATELET COUNT 406 TH/MM3 (150-450); RED BLOOD COUNT 5.16 MIL/MM3 (4.00-5.30); RED CELL DISTRIBUTION WIDTH 12.5 % (11.6-17.2); WHITE BLOOD COUNT 6.6 TH/MM3 (4.0-11.0)
[2017-11-28 12:39] LABS: CHLORIDE 106 MEQ/L (98-107); SODIUM (NA) 137 MEQ/L (136-145)
[2017-11-28 12:42] LABS: CALCIUM 9.4 MG/DL (8.5-10.1)
[2017-11-28 12:43] LABS: ALBUMIN 3.3 GM/DL (3.4-5.0); BICARBONATE 24.8 MEQ/L (21.0-32.0); BLOOD UREA NITROGEN 12 MG/DL (7-18); GLUCOSE,RANDOM 100 MG/DL (74-106)
[2017-11-28 12:46] LABS: ALT (GPT) 18 U/L (10-53); AST (GOT) 15 U/L (15-37); CREATININE 0.72 MG/DL (0.50-1.00); GLOMERULAR FILTRATION RATE 102 ML/MIN (>89)
[2017-11-28 12:47] LABS: TOTAL BILIRUBIN ADULT 0.2 MG/DL (0.2-1.0); TOTAL PROTEIN 7.7 GM/DL (6.4-8.2)
[2017-11-28 12:48] LABS: ALKALINE PHOSPHATASE 103 U/L (45-117)
[2017-11-28 13:22] VITALS: BP 129/84; PULSE 80; RESP 18; O2SAT 97
--- NOTE | 2017-11-28 13:38 | RADRPT ---
EXAM DATE/TIME: 11/28/2017 12:58 [facility] COMPARISON: CT ABDOMEN & PELVIS W CONTRAST, January 15, 2017, 10:06. INDICATIONS : Abdominal pain ORAL CONTRAST: No oral contrast ingested. RADIATION DOSE: 16.65 CTDIvol (mGy) MEDICAL HISTORY : None SURGICAL HISTORY : None. ENCOUNTER: Initial ACUITY: 1 day PAIN SCALE: 8/10 LOCATION: Bilateral Umbilical TECHNIQUE: Volumetric scanning of the abdomen and pelvis was performed. Using automated exposure control and ad justment of the mA and/or kV according to patient size, radiation dose was kept as low as reasonably achievable to obtain optimal diagnostic quality images. DICOM format image data is available electro nically for review and comparison. The lack of IV contrast limits the diagnosis for certain organ pa thology. FINDINGS: LOWER LUNGS: The visualized lower lungs are clear. LIVER: Homogeneous density without lesion. There is no dilation of the biliary tree. No gallbladder, surgi nirmal removed. Stable mild prominence of the common bile duct characteristic of reservoir effect. No significant change compared to the prior CT scan.. SPLEEN: Normal size without lesion. PANCREAS: Within normal limits. KIDNEYS: Normal in size and shape. There is no mass, stone, or hydronephrosis. ADRENAL GLANDS: Within normal limits. VASCULAR: There is no aortic aneurysm. BOWEL/MESENTERY: The stomach, small bowel, and colon demonstrate no acute abnormality. There is no free intraperitone al air or fluid. The appendix is unremarkable. No inflammatory changes. ABDOMINAL WALL: Within normal limits. RETROPERITONEUM: There is no lymphadenopathy. BLADDER: No wall thickening or mass. REPRODUCTIVE: Within normal limits. INGUINAL: There is no lymphadenopathy or hernia. MUSCULOSKELETAL: Within normal limits for patient age. CONCLUSION: 1. Stable unremarkable CT scan of the abdomen pelvis compared to the prior examination. 2. No acute abdominal or pelvic pathology. Stuart Almeida MD on November 28, 2017 at 13:34 Board Certified Radiologist. This report was verified electronically.
== END 2017-11-28 14:00 | disposition home or self-care (01) ==
LOC: PHED 11:40
DX: K43.9 Ventral hernia without obstruction or gangrene (principal); M19.90 Unspecified osteoarthritis, unspecified site; F41.9 Anxiety disorder, unspecified; F17.210 Nicotine dependence, cigarettes, uncomplicated; Z88.0 Allergy status to penicillin; Z88.5 Allergy status to narcotic agent; Z79.899 Other long term (current) drug therapy
CPT/HCPCS: 74176; 80053; 83690; 85025; 99284